=== PATIENT | female | born 1940 | race African-American/Black ===

== ENCOUNTER 2016-05-28 15:03 | Outpatient (RCR) | payer MEDICARE, BC, OTHER ==
[~2016-05-28 15:03] MED LIST: ACETAMINOPHEN-1 EAC1 ORAL; AMIODARONE HCL400 M1 ORAL; ASPIR 8181 MG ORAL; CATAPRES0.1 MG ORAL; CLONIDINE0.1 MG GT; COLACE100 MG ORAL; ENALAPRIL MALEA20 MG ORAL; HUMALOG100 UNIT/1 SUBQ; IBUPROFEN600 MG ORAL; LANTUS5 UNITS SUBQ; METOPROLOL SUC100 MG ORAL; NEPHROVITE1 TAB ORAL; OMEPRAZOLE20 M2 ORAL; PLAVIX75 MG ORAL; RENVELA0.8 GM ORAL; RESTORIL15 MG ORAL; SENSIPAR30 MG ORAL; SIMVASTATIN40 MG ORAL; UNOBMED; VICODIN 5-3001 EACH ORAL
== END 2016-06-04 | disposition home or self-care (01) ==
LOC: WCC 15:03
DX: L89.892 Pressure ulcer of other site, stage 2 (principal); E11.621 Type 2 diabetes mellitus with foot ulcer; I10 Essential (primary) hypertension; N18.6 End stage renal disease; I73.9 Peripheral vascular disease, unspecified; E11.9 Type 2 diabetes mellitus without complications; Z90.49 Acquired absence of other specified parts of digestive tract; Z79.4 Long term (current) use of insulin; Z88.0 Allergy status to penicillin
CPT/HCPCS: G0463

== ENCOUNTER → 2016-07-02 | Outpatient (RCR) | payer MEDICARE, BC, OTHER | END | disposition home or self-care (01) | LOC: WCC 14:29 | DX: L97.323 Non-pressure chronic ulcer of left ankle with necrosis of muscle (principal); I70.243 Atherosclerosis of native arteries of left leg with ulceration of ankle; E11.621 Type 2 diabetes mellitus with foot ulcer; L03.116 Cellulitis of left lower limb; Z90.49 Acquired absence of other specified parts of digestive tract; I10 Essential (primary) hypertension; N18.6 End stage renal disease; Z79.4 Long term (current) use of insulin; Z88.0 Allergy status to penicillin | CPT/HCPCS: G0463 ==